=== PATIENT | female | born 1985 | race Caucasian/White ===

== ENCOUNTER 2022-05-18 12:45 | Outpatient (CLI) | payer OTHER, SELFPAY ==
[2022-05-18 21:22] LABS: Albumin* 4.4 g/dL (3.3-5.0); Chloride* 105 mmol/L (96-114); Potassium* 4.2 mmol/L (3.6-5.1); Sodium* 135 mmol/L (135-149)
[2022-05-18 21:24] LABS: Creatinine* 0.8 mg/dL (0.5-1.5); Estimated Glomerular Filt Rate 98 ml/min
[2022-05-18 21:25] LABS: Alanine Aminotransferase* 16 U/L (4-35); Alkaline Phosphatase* 71 U/L (40-150); Aspartate Amino Transferase* 27 U/L (12-35); Bilirubin Total* 0.5 mg/dL (0.1-1.5); Blood Urea Nitrogen* 11 mg/dL (5-24); Calcium* 9.1 mg/dL (8.4-10.6); Carbon Dioxide* 26 mmol/L (20-32); Glucose* 99 mg/dL (60-115); Total Protein* 7.2 g/dL (6.0-8.3)
[2022-05-18 21:58] LABS: Ferritin* 17.1 ng/mL (6.24-137.0)
[2022-05-18 22:14] LABS: Vitamin B12* 625 pg/mL (243-894)
[2022-05-21 03:40] LABS: Vitamin D, 1,25-Dihydroxy 51.1 pg/mL (19.9-79.3)
== END 2022-05-18 12:46 | disposition home or self-care (01) ==
PROVIDERS: PCP Internal Medicine; Visit Provider Physician Assistant Medical
DX: E03.9 Hypothyroidism, unspecified (principal); R53.83 Other fatigue
CPT/HCPCS: 80053; 82607; 82652; 82728; 84439; 84443

== ENCOUNTER 2022-09-18 10:37 | Outpatient (CLI) | payer OTHER, SELFPAY ==
[2022-09-18 14:25] LABS: Glucose* 106 mg/dL (60-115)
== END 2022-09-18 10:38 | disposition home or self-care (01) ==
PROVIDERS: PCP Internal Medicine; Visit Provider Physician Assistant
DX: Z01.419 Encounter for gynecological examination (general) (routine) without abnormal findings (principal); E03.9 Hypothyroidism, unspecified; R63.1 Polydipsia
CPT/HCPCS: 82947; 84443

== ENCOUNTER 2023-08-21 08:51 | Outpatient (CLI) | payer OTHER, SELFPAY | END 2023-08-21 08:52 | disposition home or self-care (01) | PROVIDERS: PCP Internal Medicine; Visit Provider Physician Assistant Medical | DX: E03.9 Hypothyroidism, unspecified (principal); Z13.6 Encounter for screening for cardiovascular disorders; F41.9 Anxiety disorder, unspecified; K58.9 Irritable bowel syndrome, unspecified; R63.1 Polydipsia; K64.9 Unspecified hemorrhoids | CPT/HCPCS: 80053; 80061; 84443 ==

== ENCOUNTER 2024-03-05 08:06 | Outpatient (CLI) | payer OTHER, SELFPAY | END 2024-03-05 08:07 | disposition home or self-care (01) | LOC: NFLDREF 03-06 06:56 | PROVIDERS: PCP Physician Assistant Medical; Referring Provider Physician Assistant Medical; Visit Provider Physician Assistant Medical | DX: R53.83 Other fatigue (principal); B02.9 Zoster without complications; E03.9 Hypothyroidism, unspecified | CPT/HCPCS: 82306; 82607; 82728; 84443 ==

== ENCOUNTER 2024-03-10 07:34 | Emergency (ER) | payer OTHER, SELFPAY ==
[2024-03-10 07:36] VITALS: BP 112/74; PULSE 70; RESP 18; TEMP 36.3; O2SAT 99
--- NOTE | 2024-03-10 08:23 | ED.GENADULT ---
HPI - General Adult General Chief complaint: Back Injury/Pain Stated complaint: back pain Time Seen by Provider: 03/10/24 08:22 History of Present Illness HPI narrative: patient is unable to get out of bed this am and hard to sit or stand. started 3 weeks ago with shaving the legs. has seen a Chiropractor which was helping and yesterday watering mckeon which flared up pain. having tingling in both legs. pain is worse with twisting or pivot to sit. has shingles in the right thigh area. 38-year-old woman presenting to the emergency department Related Data Previous Rx's Medication Instructions Recorded levothyroxine 150 mcg tablet 150 mcg PO QDAY #90 tabs 08/22/23 cyclobenzaprine 5 mg tablet 5 - 10 mg (1 - 2 x 5 mg) PO TID 03/05/24 PRN muscle spasm #60 tabs hydrocodone 5 mg-acetaminophen 325 1 tab PO Q12H PRN pain #30 tabs 03/05/24 mg tablet valacyclovir 1 gram tablet 1,000 mg PO TID 7 days #21 tabs 03/05/24 (Valtrex) Allergies Allergy/AdvReac Type Severity Reaction Status Date / Time Sulfa drugs Allergy Mild Hives Uncoded 03/05/24 07:32 PFSH PFSH Medical History (Updated 03/05/24 @ 14:46 by Kenyatta Ceron PA-C) History of Graves' disease ?Z86.39 - Personal history of other endocrine, nutritional and metabolic disease (ICD-10) Surgical History (Updated 09/18/22 @ 10:10 by Renetta Guerra PA-C) History of laparoscopy ?Z98.890 - Other specified postprocedural states (ICD-10) History of colonoscopy (03/19/11) ?Z98.890 - Other specified postprocedural states (ICD-10) Family History (Updated 10/16/23 @ 09:16 by Tayla Brower MD) Mother Thyroid disease Father High blood pressure Social History (Updated 09/18/22 @ 11:22 by Renetta Guerra PA-C) Narrative: works in [employer] 4 times a week does not use illicit drugs non-smoker rarely consumes alcohol Smoking Status: Never smoker Little interest or pleasure in doing things: not at all Feeling down, depressed, or hopeless: not at all Exam Const: Vital Signs, click to edit/add: Vital Signs - 24 hr 03/10/24 07:36 Temperature 97.3 F L Pulse Rate [Pulse Oximeter] 70 Respiratory Rate 18 Blood Pressure [Ri ght Upper Arm] 112/74 Pulse Oximetry 99 Oxygen Delivery Me thod Room Air Course Vital Signs Vital signs: Initial Vital Signs Temperature 97.3 F L 03/10/24 07:36 Temperature Source Temporal Artery Scan 03/10/24 07:36 Pulse Rate 70 03/10/24 07:36 Respiratory Rate 18 03/10/24 07:36 Blood Pressure 112/74 03/10/24 07:36 Blood Pressure Mean 86 03/10/24 07:36 Blood Pressure Position Sitting 03/10/24 07:36 Pulse Oximetry 99 03/10/24 07:36 Oxygen Delivery Method Room Air 03/10/24 07:36 Vital Signs Temperature 97.3 F L 03/10/24 07:36 Pulse Rate 70 03/10/24 07:36 Respiratory Rate 18 03/10/24 07:36 Blood Pressure 112/74 03/10/24 07:36 Pulse Oximetry 99 03/10/24 07:36 Oxygen Delivery Method Room Air 03/10/24 07:36 Temperature 97.3 F L 03/10/24 07:36 Pulse Rate 70 03/10/24 07:36 Respiratory Rate 18 03/10/24 07:36 Blood Pressure 112/74 03/10/24 07:36 Pulse Oximetry 99 03/10/24 07:36 Oxygen Delivery Method Room Air 03/10/24 07:36 Discharge Plan Discharge Prescriptions: No Action hydrocodone-acetaminophen 5-325 mg tablet 1 tab PO Q12H PRN (Reason: pain) Qty: 30 0RF cyclobenzaprine 5 mg tablet 5 - 10 mg PO TID PRN (Reason: muscle spasm) Qty: 60 1RF valacyclovir [Valtrex] 1 gram tablet 1,000 mg PO TID 7 Days Qty: 21 0RF levothyroxine 150 mcg tablet 150 mcg PO QDAY Qty: 90 3RF Follow Up/Referrals: Kenyatta Ceron PA-C [Primary Care Provider] -
--- NOTE | 2024-03-10 08:39 | XR_ITS ---
Patient: LELE JIMÉNEZ Facility:?[facility] Patient ID:?[id number] Site Patient ID:?[id number]. Site :?1985 Study:?XRay-Spine Lumbar -03/10/2024 9:48:42 AM Ordering Physician:?LAMIN DEVI Final Report: INDICATION: BACK PAIN TECHNIQUE: Lumbar spine 3 view. COMPARISON: None. FINDINGS: Bones: Preserved lumbar lordosis. Gentle levocurvature of the lumbar spine. No fractures or significant bone lesions. No spondylolisthesis. Joints: Lumbar disc spaces and facets are unremarkable. Mild intervertebral disc space narrowing and anterior osteophytosis at T11-T12. Soft tissues: Mild stool burden throughout the visualized colon. IMPRESSION: Gentle levocurvature of the lumbar spine. No evidence of fracture or significant spondylosis. Mild intervertebral disc space narrowing and anterior osteophytosis at T11-T12. Dictated by Nils Harris MD @ 03/10/2024 10:06:38 AM Signed by:?Nils Harris MD @03/10/2024 10:06:38 AM (Electronic Signature)
[2024-03-10] MEDS: MORPHINE 10 MG/ML inj IM (08:52)
[2024-03-10] MEDS: KETOROLAC 30 MG/ML inj IM (08:52)
--- NOTE | 2024-03-10 09:43 | ED_ITS ---
HPI - Back Pain/Injury General Date Seen: 03/10/24 Chief Complaint: Back Injury/Pain Stated Complaint: back pain Time Seen by Provider: 03/10/24 08:22 Source: patient and family Mode of arrival: ambulatory Limitations: no limitations History of Present Illness HPI Narrative: patient is unable to get out of bed this am and hard to sit or stand. started 3 weeks ago with shaving the legs. has seen a Chiropractor which was helping and yesterday watering mckeon which flared up pain. having tingling in both legs. pain is worse with twisting or pivot to sit. has shingles in the right thigh a greg Patient is a very nice lady who presents here with her significant other for evaluation of back discomfort she notes that it worsened overnight. She describes in her lower back, without radiation specifically into her legs, although she does get pain into both hamstrings at times the right seems worse than the left. She has been fighting this for the last 2-3 weeks, and has seen a chiropractor for this imaging is not been done, she denies any fevers chills or sweats. Co founding this she has developed shingles of 4 days ago, this shingles is over her buttock, that wraps around her right upper leg, to her medial area of the upper leg. This is now crusting, she feels better with this. Is taking Valtrex as this was diagnosed in urgent care. She has also taken some Vicodin along with Toradol for the discomfort along with cyclobenzaprine. She has been able to tolerating get around with this issue. No history of bowel or bladder problems, she denies no fevers chills or sweats, no history of malignancy, trauma, falls. She has had no invasive issues or medical done on her spine. No past significant history of back discomfort. MD elicited complaint: back pain Treatments prior to arrival: cold therapy, NSAIDS, acetaminophen, other medications and prescription analgesics Work related injury: No Related Data Previous Rx's Medication Instructions Recorded levothyroxine 150 mcg tablet 150 mcg PO QDAY #90 tabs 08/22/23 cyclobenzaprine 5 mg tablet 5 - 10 mg (1 - 2 x 5 mg) PO TID 03/05/24 PRN muscle spasm #60 tabs hydrocodone 5 mg-acetaminophen 325 1 tab PO Q12H PRN pain #30 tabs 03/05/24 mg tablet valacyclovir 1 gram tablet 1,000 mg PO TID 7 days #21 tabs 03/05/24 (Valtrex) methylprednisolone 4 mg tablets in See Rx Instructions PO .COMPLEX 03/10/24 a dose pack (Medrol (Buster)) #21 ea ondansetron 4 mg disintegrating 4 mg PO Q8-12H PRN nausea and 03/10/24 tablet vomiting #14 tabs oxycodone 5 mg tablet 5 mg PO Q8H PRN pain #14 tabs 03/10/24 Allergies Allergy/AdvReac Type Severity Reaction Status Date / Time Sulfa drugs Allergy Mild Hives Uncoded 03/05/24 07:32 Review of Systems Status of ROS: Reports: 10 or more systems reviewed and unremarkable except as noted in History and below [facility] Medical History History of Graves' disease ?Z86.39 - Personal history of other endocrine, nutritional and metabolic disease (ICD-10) Surgical History History of laparoscopy ?Z98.890 - Other specified postprocedural states (ICD-10) History of colonoscopy (03/19/11) ?Z98.890 - Other specified postprocedural states (ICD-10) Family History Mother Thyroid disease Father High blood pressure Social History Narrative: works in [employer] 4 times a week does not use illicit drugs non-smoker rarely consumes alcohol Smoking Status: Never smoker Do you use any of these nicotine containing products: None How often do you have a drink containing alcohol: never AUDIT-C Alcohol total score: 0 Non-prescribed substance use: denies use Little interest or pleasure in doing things: not at all Feeling down, depressed, or hopeless: not at all Exam Narrative: Exam Narrative: On examination I find her lying on her right-sided in room 7. Her is very supportive. Examination reveals back pain and spasm on mild palpation over the lumbar spine. There is no obvious Tra rashes notable. Her trauma over the lumbar spine, she is not percussible E tender. She does have what appears to be dew drops on a crys [place] over her right buttock, a rash consistent with the more of a dry scabbed over presentation of shingles with no secondary infection, the rash does wrap around the L5-3 area of her right upper leg. SLR is positive on the right-sided approximately 50?. Her EHL is weak on the right side also. 4/5, she is unable to really stand so. But it also appears that or mi dorsiflexion of the right foot is slightly weak also. Reflexes are appropriate in her lower extremities bilaterally 2+ in her knees and 1+ in her ankles. Sensation is grossly normal over all the areas pulses are normal there is no edema no obvious wasting of the muscles. Const: Vital Signs, click to edit/add: Vital Signs - 24 hr 03/10/24 07:36 Temperature 97.3 F L Pulse Rate [Pulse Oximeter] 70 Respiratory Rate 18 Blood Pressure [Ri ght Upper Arm] 112/74 Pulse Oximetry 99 Oxygen Delivery Me thod Room Air Documenting provider has reviewed patient's vital signs: yes Course Course ED Course: I discussed with the patient, her MRI findings and showed these to her. I think it would be reasonable and appropriate at this point to give her Medrol Dosepak, along with the Vicodin for the discomfort, she should follow-up with spine person, for ongoing physical therapy, and also consideration of an epidural injection if she needs in the future. Other possibilities could be use of gabapentin for discomfort. Reevaluation(s) Time of Reevaluation #1: 10:42 Reevaluation #1: I discussed with the patient, that there was some disc space narrowing at L5-S1, there is also some osteophytic and narrowing, along with vertebral compression at T10-11, correlating with an old injury. Which she tells me is likely when she fell off her horse. Given her findings I think MRI would be reasonable over lumbar spine especially with the issue arising from the right-sided L3 herpes zoster. MRI is been secured, we will go forward with this Vital Signs Vital signs: Initial Vital Signs Temperature 97.3 F L 03/10/24 07:36 Temperature Source Temporal Artery Scan 03/10/24 07:36 Pulse Rate 70 03/10/24 07:36 Respiratory Rate 18 03/10/24 07:36 Blood Pressure 112/74 03/10/24 07:36 Blood Pressure Mean 86 03/10/24 07:36 Blood Pressure Position Sitting 03/10/24 07:36 Pulse Oximetry 99 03/10/24 07:36 Oxygen Delivery Method Room Air 03/10/24 07:36 Vital Signs Temperature 97.3 F L 03/10/24 07:36 Pulse Rate 70 03/10/24 07:36 Respiratory Rate 18 03/10/24 07:36 Blood Pressure 112/74 03/10/24 07:36 Pulse Oximetry 99 03/10/24 07:36 Oxygen Delivery Method Room Air 03/10/24 07:36 Temperature 97.3 F L 03/10/24 07:36 Pulse Rate 70 03/10/24 07:36 Respiratory Rate 18 03/10/24 07:36 Blood Pressure 112/74 03/10/24 07:36 Pulse Oximetry 99 03/10/24 07:36 Oxygen Delivery Method Room Air 03/10/24 07:36 Medications Administered Medications: Discontinued Medications Generic Name Dose Route Start Last Admin Trade Name Jimmyq PRN Reason Stop Dose Admin Ketorolac Tromethamine 30 mg 03/10/24 08:39 03/10/24 08:52 Ketorolac 30 Mg/Ml Inj IM 03/10/24 08:40 30 mg ONCE ONE Administration Morphine Sulfate 10 mg 03/10/24 08:39 03/10/24 08:52 Morphine 10 Mg/Ml Inj IM 03/10/24 08:40 10 mg ONCE ONE Administration Ondansetron HCl 4 mg 03/10/24 12:06 03/10/24 12:23 Ondansetron Odt 4 Mg Tab PO 03/10/24 12:07 4 mg ONCE ONE Administration MDM - Back Pain/Injury MDM Narrative Medical decision making narrative: Life-threatening differential diagnosis considered include: Cauda equina an epidural abscess, other differential diagnosis considered includes sprain, contusion, nerve root entrapment, radiculopathy, muscle spasm, urolithiasis, lumbar fracture, pyelonephritis, appendicitis, biliary colic, as well as other etiologies. The patient denies saddle anesthesia bowel or bladder incontinence or lower extremity weakness, recent weight loss, or history of malignancy. Differential Diagnosis Differential diagnosis: Likely lumbar radiculopathy, sciatica, strain of lumbar region, renal colic, pyelonephritis, thoracic back pain and discitis Medical Records Attestation: I reviewed the patient's medical records. Imaging Data Lumbar x-ray: Attestation: I have reviewed the pertinent imaging results. My impression: Narrowing at L5-S1, there is some wedging of T10-11, with the anterior osteophytic ridging, radiological over-read pending I reviewed the lumbar MRI done without contrast, there is a disc extrusion at L5-S1. This appears to be central right-sided lateral. With some narrowing of the subarticular recess and foramen. This likely is causing some irritation of the nerve. Which is given her the discomfort the remainder of her MRI looks good we will wait the logic over-read. Radiologist's impression: Patient: LELE JIMÉNEZ Facility:?[facility] Patient ID:?[id number] Site Patient ID:?[id number]. Site :?1985 Study:?MRI-Spine Lumbar W/O-03/10/2024 11:55:04 AM Ordering Physician:?FLORIN BINGHAM Final Report: INDICATION: Back pain. Left-sided radiculopathy. TECHNIQUE : Lumbar spine MRI without contrast. COMPARISON: Lumbar spine radiographs from 03/10/2024. FINDINGS : Five lumbar type vertebral bodies, with the last fully formed disc space designated as L5-S1. Normal lumbar lordotic curve. No recent compression fracture or marrow replacing process. Lower cord/conus signal is normal. The conus terminates at a normal location. No intradural lesion. No extraspinal soft tissue abnormalities. Discs/Endplates: Mild disc height loss and disc desiccation T11-12 and L5-S1. Remaining discs are within normal limits. Findings at individual levels as follows: T11-12: Minimal disc bulge. No spinal canal or neural foraminal stenosis. T12-L1: No spinal canal or neural foraminal stenosis. L1-2: No spinal canal or neural foraminal stenosis. L2-3: No spinal canal or neural foraminal stenosis. L3-4: No spinal canal or neural foraminal stenosis. L4-5: No spinal canal or neural foraminal stenosis. L5-S1: A shallow central protrusion context of thecal sac without deforming or impinging neural structures. No spinal canal or neural foraminal stenosis. Imaged SI joints: Within normal limits. Imaged sacrum: Within normal limits. IMPRESSION: 1. No high-grade spinal canal/neural foraminal stenosis or belén impingement of neural structures at any imaged level. Scattered minor spondylosis, including a small central disc protrusion at L5-S1 is noted. Dictated by Srinivasa Bull MD @ 03/10/2024 12:11:12 PM (Electronic Signature) Discharge Plan Discharge Clinical Impression: Lumbar radiculopathy, acute, Back pain Patient Disposition: Home w/ Parent or Adult Condition: Stable Instructions: Acute Low Back Pain (ED), Lumbar Radiculopathy (ED), Epidural Steroid Injection (DC), Lower Back Exercises (ED) Additional Instructions: Home rest ice is helpful for the problem, chiropractic manipulation is also helpful for this issue. Recommend follow-up with your regular physician and consideration of orthopedic follow-up with spine. Usually a 1st step is physical therapy, along with the possibility of an epidural injection if the Medrol Dosepak does not give you relief. Use the narcotic medications sparingly and use a stool softener with this. Do not combine with alcohol. Prescriptions: New ondansetron 4 mg tablet,disintegrating 4 mg PO Q8-12H PRN (Reason: nausea and vomiting) Qty: 14 0RF oxycodone 5 mg tablet 5 mg PO Q8H PRN (Reason: pain) Qty: 14 0RF methylprednisolone [Medrol (Buster)] 4 mg tablets,dose pack See Rx Instructions .ROUTE .COMPLEX Qty: 21 0RF Rx Instructions: for 6 days No Action hydrocodone-acetaminophen 5-325 mg tablet 1 tab PO Q12H PRN (Reason: pain) Qty: 30 0RF cyclobenzaprine 5 mg tablet 5 - 10 mg PO TID PRN (Reason: muscle spasm) Qty: 60 1RF valacyclovir [Valtrex] 1 gram tablet 1,000 mg PO TID 7 Days Qty: 21 0RF levothyroxine 150 mcg tablet 150 mcg PO QDAY Qty: 90 3RF Follow Up/Referrals: Kenyatta Ceron PA-C [Primary Care Provider] - Stand Alone Forms: [facility] Info Instructions
--- NOTE | 2024-03-10 10:21 | MR_ITS ---
Patient: LELE JIMÉNEZ Facility:?[facility] Patient ID:?[id number] Site Patient ID:?[id number]. Site :?1985 Study:?MRI-Spine Lumbar W/O-03/10/2024 11:55:04 AM Ordering Physician:?LAMIN DEVI Final Report: INDICATION: Back pain. Left-sided radiculopathy. TECHNIQUE : Lumbar spine MRI without contrast. COMPARISON: Lumbar spine radiographs from 03/10/2024. FINDINGS : Five lumbar type vertebral bodies, with the last fully formed disc space designated as L5-S1. Normal lumbar lordotic curve. No recent compression fracture or marrow replacing process. Lower cord/conus signal is normal. The conus terminates at a normal location. No intradural lesion. No extraspinal soft tissue abnormalities. Discs/Endplates: Mild disc height loss and disc desiccation T11-12 and L5-S1. Remaining discs are within normal limits. Findings at individual levels as follows: T11-12: Minimal disc bulge. No spinal canal or neural foraminal stenosis. T12-L1: No spinal canal or neural foraminal stenosis. L1-2: No spinal canal or neural foraminal stenosis. L2-3: No spinal canal or neural foraminal stenosis. L3-4: No spinal canal or neural foraminal stenosis. L4-5: No spinal canal or neural foraminal stenosis. L5-S1: A shallow central protrusion context of thecal sac without deforming or impinging neural structures. No spinal canal or neural foraminal stenosis. Imaged SI joints: Within normal limits. Imaged sacrum: Within normal limits. IMPRESSION: 1. No high-grade spinal canal/neural foraminal stenosis or belén impingement of neural structures at any imaged level. Scattered minor spondylosis, including a small central disc protrusion at L5-S1 is noted. Dictated by Srinivasa Bull MD @ 03/10/2024 12:11:12 PM Signed by:?Srinivasa Bull MD @03/10/2024 12:11:12 PM (Electronic Signature)
[2024-03-10] MEDS: ONDANSETRON ODT 4 MG TAB PO (12:23)
== END 2024-03-10 13:06 | disposition home or self-care (01) ==
PROVIDERS: Emergency Provider Family Medicine; PCP Physician Assistant Medical
DX: M54.16 Radiculopathy, lumbar region (principal)
CPT/HCPCS: 72100; 72148; 96372; 99284; A9270; J1885; J2270

== ENCOUNTER 2024-07-09 15:24 | Outpatient (CLI) | payer OTHER, SELFPAY | END 2024-07-09 15:25 | disposition home or self-care (01) | PROVIDERS: PCP Physician Assistant Medical; Visit Provider Family Medicine | DX: E03.9 Hypothyroidism, unspecified (principal); Z13.228 Encounter for screening for other metabolic disorders | CPT/HCPCS: 80053; 84443 ==

== ENCOUNTER 2024-07-14 08:37 | Outpatient (CLI) | payer OTHER, SELFPAY | END 2024-07-14 08:38 | disposition home or self-care (01) | PROVIDERS: PCP Family Medicine; Visit Provider Family Medicine | DX: E03.9 Hypothyroidism, unspecified (principal) | CPT/HCPCS: 84439; 84481 ==

== ENCOUNTER 2024-10-23 07:12 | Outpatient (CLI) | payer OTHER, SELFPAY ==
--- NOTE | 2024-10-23 07:15 | CRLHL7_ITS ---
For Patients: As a result of the Cures Act, medical imaging exams and procedure reports are released immediately into your electronic medical record. You may view this report before your referring provider. If you have questions, please contact your health care provider. INDICATION: Intermittent paresthesias and hypertonicity TECHNIQUE: Noncontrast sagittal T1, T2, STIR and axial GRE sequences are provided. No comparisons. FINDINGS: The overall stature, alignment and intrinsic marrow signal of the cervical spine is within normal limits. Cervical cord is normal. No suspicious disc bulges or protrusions. No suspicious central canal or foraminal narrowing. IMPRESSION: Unremarkable MRI of the cervical spine. Dictated by Bruno Clements MD @ 10/23/2024 10:32:54 AM (Electronically Signed)
--- NOTE | 2024-10-23 08:00 | CRLHL7_ITS ---
For Patients: As a result of the Cures Act, medical imaging exams and procedure reports are released immediately into your electronic medical record. You may view this report before your referring provider. If you have questions, please contact your health care provider. INDICATION: Intermittent paresthesias and hypertonicity TECHNIQUE: Noncontrast sagittal T1, T2, STIR and axial GRE sequences are provided. No comparisons. FINDINGS: The overall stature, alignment and intrinsic marrow signal of the thoracic spine is within normal limits. Thoracic cord is normal. No suspicious disc bulges or protrusions. No suspicious central canal or foraminal narrowing. IMPRESSION: Unremarkable MRI of the thoracic spine. Dictated by Bruno Clements MD @ 10/23/2024 10:33:16 AM (Electronically Signed)
== END 2024-10-23 07:13 | disposition home or self-care (01) ==
LOC: MRI 07:12
PROVIDERS: PCP Family Medicine; Visit Provider Family Medicine
DX: M54.10 Radiculopathy, site unspecified (principal); R20.2 Paresthesia of skin
CPT/HCPCS: 72141; 72146

== ENCOUNTER 2024-11-25 08:40 | Outpatient (CLI) | payer OTHER, SELFPAY | END 2024-11-25 08:41 | disposition home or self-care (01) | LOC: NFLDREF 11-30 03:03 | PROVIDERS: PCP Family Medicine; Referring Provider Family Medicine; Visit Provider Family Medicine | DX: L65.9 Nonscarring hair loss, unspecified (principal) | CPT/HCPCS: 83001; 84439; 84443 ==

== ENCOUNTER 2025-01-06 14:35 | Outpatient (CLI) | payer OTHER, SELFPAY | END 2025-01-06 14:36 | disposition home or self-care (01) | PROVIDERS: PCP Family Medicine; Visit Provider Physician Assistant Medical | DX: E03.9 Hypothyroidism, unspecified (principal); K52.9 Noninfective gastroenteritis and colitis, unspecified | CPT/HCPCS: 80053; 84439; 84443 ==

== ENCOUNTER 2025-07-05 08:07 | Outpatient (CLI) | payer OTHER, SELFPAY ==
[2025-07-08 12:57] LABS: HPV Source Endocervical
[2025-07-09 13:00] LABS: Pap Test Digital Imaging Done
== END 2025-07-05 08:08 | disposition home or self-care (01) ==
PROVIDERS: PCP Family Medicine; Visit Provider Family Medicine
DX: E03.9 Hypothyroidism, unspecified (principal); R79.0 Abnormal level of blood mineral; L65.9 Nonscarring hair loss, unspecified; Z12.4 Encounter for screening for malignant neoplasm of cervix; R63.1 Polydipsia; Z11.51 Encounter for screening for human papillomavirus (HPV); Z13.6 Encounter for screening for cardiovascular disorders; Z13.1 Encounter for screening for diabetes mellitus
CPT/HCPCS: 80053; 80061; 84439; 84443; 86803; 87624; 87625; 88141; 88142; 88175